=== PATIENT | female | born 1960 | race Caucasian/White ===

== ENCOUNTER 2023-12-20 15:12 | Outpatient (CLI) | payer OTHER, SELFPAY ==
--- NOTE | ~2023-12-20 | CT_ITS ---
EXAMINATION: CT abdomen pelvis wo/w con DATE: 12/20/2023 16:01 INDICATION: Gross hematuria TECHNIQUE: Computed tomography (CT) of the abdomen and pelvis was performed without intravenous contr ast. CT of the abdomen and pelvis was then performed with a total of 130 mL Omnipaque-350 intravenous contrast using a double-bolus technique for simultaneous opacification of the renal parenchyma and r enal collecting system. Automated exposure control and iterative reconstruction technique were employ ed. The dose-length product was 2059.23 mGy-cm. COMPARISON: None FINDINGS: Mild discoid atelectasis in the right middle and right lower lobes. Heart size is normal. No pericard ial or pleural effusion. Small sliding-type hiatal hernia. Liver, gallbladder, spleen and pancreas ar e normal. Bilateral low-attenuation adrenal adenomas measuring 3.6 x 2.1 cm on the left and 2.1 x 1.5 cm on the right. Kidneys and ureters are normal with no urolithiasis, hydroureteronephrosis or perin ephric/ureteral stranding. Kidneys enhance symmetrically. Portions of the mid to distal right and pro ximal left ureter are decompressed without discernible intraluminal contrast. No urothelial irregular ities identified along the contrast opacified portions of the bilateral renal collecting systems and ureters. Bladder is normal. There is moderate colonic diverticulosis with a sigmoid and descending co abhilash predominance without adjacent inflammatory change to suggest diverticulitis. Small bowel and appe ndix are normal. Uterus and bilateral adnexa are unremarkable. Mild S-shaped scoliosis of the thoraci c and lumbar spine with mild thoracic and moderate lumbar spondylosis. IMPRESSION: 1. No urolithiasis or other etiology to explain reported gross hematuria. 2. Diverticulosis. 3. Small sliding-type hiatal hernia Reviewed, dictated and finalized at location B.
[2023-12-20 15:37] LABS: Estimated Glomerular Filt Rate > 60
== END 2023-12-20 15:13 ==
PROVIDERS: PCP Nurse Practitioner Adult Health; Visit Provider Nurse Practitioner Adult Health
DX: R31.0 Gross hematuria (principal); K44.9 Diaphragmatic hernia without obstruction or gangrene; K57.30 Diverticulosis of large intestine without perforation or abscess without bleeding
CPT/HCPCS: 74178; Q9967